=== PATIENT | male | born 1985 | race Two or more races ===

== ENCOUNTER 2023-04-04 18:00 | Emergency (ER) | payer BC, OTHER ==
[~2023-04-04] VITALS: Ht 185.4 cm; Wt 104.5 kg
[2023-04-04 18:33] LABS: Hematocrit 46.6 % (41.0-53.0); Hemoglobin 16.2 g/dL (13.5-17.5); Mean Corpuscular Hemoglobin 31.3 pg (28.0-32.0); Mean Corpuscular Hgb Conc. 34.7 g/dL (32.0-36.0); Mean Corpuscular Volume 90.1 fL (80.0-100.0); Red Blood Cells 5.17 10^6/uL (4.5-5.90); Red Cell Distribution Width 12.7 % (11.8-14.3); White Blood Cell 6.1 10^3/uL (4.4-10.8)
[2023-04-04 18:53] LABS: Alanine Aminotransferase 70 U/L (7-40); Albumin 4.7 g/dL (3.2-4.8); Alkaline Phosphatase 73 U/L (46-116); Anion Gap 8 (5-15); Aspartate Aminotransferase 38 U/L (13-40); BUN/Creatinine Ratio 5.5 (10.0-20.0); Bilirubin, Total 0.6 mg/dL (0.2-1.0); Blood Urea Nitrogen 6 mg/dL (9-23); Calcium 8.9 mg/dL (8.7-10.4); Carbon Dioxide 21 mmol/L (20-30); Chloride 108 mmol/L (98-107); Glucose 94 mg/dL (74-106); Magnesium 2.2 mg/dL (1.6-2.6); Potassium 3.8 mmol/L (3.5-5.1); Sodium 137 mmol/L (136-145); Total Protein 7.9 g/dL (5.7-8.2)
[2023-04-04 19:11] LABS: Basophils % (manual) 0 (0.0-2.0); Blast Cells 0; Promyelocytes % 0; Reactive Lymphocytes 0
[2023-04-04 19:19] LABS: INR 1.03 (0.9-1.15); Partial Thromboplastin Time 34.2 SEC (24.5-34.5); Prothrombin Time 10.8 sec (9.3-11.8)
[2023-04-04 19:40] VITALS: PULSE 86; RESP 14; O2SAT 98
[2023-04-04 19:48] LABS: Band Neutrophils % (manual) 8; Eosinophils % (manual) 2 (0-7); Lymphocytes % (manual) 17 (10.0-50.0); Metamyelocytes % 3; Monocytes % (manual) 25 (0-12); Myelocytes % 3; Platelet Estimate Adequate
[2023-04-04] MEDS ORDERED: ACETAMINOPHEN 325 MG TAB PO ONE (20:45)
[2023-04-04] MEDS ORDERED: IPRATROPIUM BROM 0.5 MG/2.5ML INH SOL ONE (20:59)
[2023-04-04] MEDS ORDERED: ALBUTEROL MEDNEB 2.5 mg/3ml NEB ONE (20:59)
[2023-04-04] MEDS ORDERED: IPRATROPIUM BROM 0.5 MG/2.5ML INH SOL NEB ONE (21:00)
[2023-04-04] MEDS ORDERED: ALBUTEROL MEDNEB 2.5 mg/3ml NEB NEB ONE (21:00)
[2023-04-04] MEDS ORDERED: LACTATED RINGER'S 1,000 ML IV ONE (21:00)
[2023-04-04] MEDS ORDERED: DexAMETHasone SOD PHOS 10MG/1ML VIAL INJ IV ONE (21:00)
[2023-04-04] MEDS ORDERED: NIRM1TAB5 PO (22:28)
[2023-04-04] MEDS ORDERED: ALBU108A5 IN (22:28)
[2023-04-04] MEDS ORDERED: DEX4T PO (22:28)
[2023-04-04 22:38] VITALS: BP 133/71; PULSE 93; RESP 20; TEMP 99.6; O2SAT 95
== END 2023-04-04 22:28 | disposition home or self-care (01) ==
LOC: ER 18:00
DX: U07.1 COVID-19 (principal); R07.89 Other chest pain
CPT/HCPCS: 36415; 71045; 80053; 83605; 83735; 83880; 84484; 85007; 85027; 85610; 85730; 87040; 93005; 94640; 96361; 96374; 99285; J1100; J7644; 87077; 87186

== ENCOUNTER 2023-04-06 11:20 | Inpatient (IN) | payer BC ==
[~2023-04-06] VITALS: Ht 185.4 cm; Wt 109.4 kg
[~2023-04-06 11:20] MED LIST: ALBU108A5 IN; DEX4T PO; NIRM1TAB5 PO
[2023-04-06 11:45] LABS: Basophils # (auto) 0 10 ^3/uL (0-0.2); Basophils % (auto) 0.2 % (0.0-2.0); Eosinophils # (auto) 0 10 ^3/uL (0-0.8); Hemoglobin 16.3 g/dL (13.5-17.5); Lymphocytes # (auto) 0.8 10 ^3/uL (0.4-5.4); Lymphocytes % (auto) 10.3 % (10.0-50.0); Mean Corpuscular Hgb Conc. 34.6 g/dL (32.0-36.0); Mean Corpuscular Volume 89.6 fL (80.0-100.0); Monocytes # (auto) 0.4 10 ^3/uL (0-1.3); Monocytes % (auto) 5.1 % (0.0-12.0); Neutrophils # (auto) 6.9 10 ^3/uL (1.6-8.6); Neutrophils % (auto) 84.4 % (37.0-80.0); Red Blood Cells 5.25 10^6/uL (4.5-5.90); Red Cell Distribution Width 12.7 % (11.8-14.3); White Blood Cell 8.2 10^3/uL (4.4-10.8)
[2023-04-06 12:04] LABS: Alanine Aminotransferase 50 U/L (7-40); Albumin 4.7 g/dL (3.2-4.8); Alkaline Phosphatase 59 U/L (46-116); Anion Gap 10 (5-15); Aspartate Aminotransferase 21 U/L (13-40); BUN/Creatinine Ratio 9.2 (10.0-20.0); Bilirubin, Total 0.7 mg/dL (0.2-1.0); Blood Urea Nitrogen 9 mg/dL (9-23); Calcium 8.8 mg/dL (8.5-10.1); Carbon Dioxide 22 mmol/L (20-30); Chloride 106 mmol/L (98-107); Glucose 182 mg/dL (74-106); Potassium 3.9 mmol/L (3.5-5.1); Sodium 138 mmol/L (136-145); Total Protein 7.9 g/dL (5.7-8.2)
[2023-04-06] MEDS ORDERED: PIPERACILLIN-TAZOB 3.375GM 100 ML IV ONE (13:00)
[2023-04-06] MEDS ORDERED: SODIUM CHLORIDE 0.9% 1,000 ML IV ONE (14:15)
[2023-04-06 14:16] LABS: Lactic Acid w/Reflex 2.4 mmol/L (0.4-2.0)
[2023-04-06] MEDS ORDERED: ACETAMINOPHEN 500 MG TAB PO PRN (16:30)
[2023-04-06] MEDS ORDERED: MORPHINE SULFATE INJ 2 MG/ml SYRG IV PRN ×2 (16:30)
[2023-04-06] MEDS ORDERED: ONDANSETRON HCL 4 MG/2 ML VIAL IV PRN (16:30)
[2023-04-06] MEDS ORDERED: HYDROcodone-ACET 5/325MG TAB PO PRN (16:30)
[2023-04-06] MEDS ORDERED: NITROGLYCERIN 0.4 MG SL TAB SL PRN (16:30)
[2023-04-06] MEDS ORDERED: IPRATROPIUM BROM 0.5 MG/2.5ML INH SOL NEB PRN (16:45)
[2023-04-06] MEDS ORDERED: ALBUTEROL MEDNEB 2.5 mg/3ml NEB NEB PRN (16:45)
[2023-04-06 21:31] VITALS: BP 134/89; PULSE 76; RESP 18; TEMP 97.5; O2SAT 97
[2023-04-06 21:59] LABS: Rapid Influenza A Negative (Negative)
[2023-04-06 22:00] LABS: COVID19 ANTIGEN SOFIA FIA POSITIVE (NEGATIVE); Rapid Influenza B Positive (Negative)
[2023-04-06] MEDS ORDERED: OSELTAMIVIR 75 MG CAP PO ONE (22:15)
[2023-04-06 23:45] VITALS: PULSE 68; RESP 16; O2SAT 99
[2023-04-07] VITALS (8 sets, daily range): BP systolic 106–140; BP diastolic 62–70; PULSE 58–64; RESP 18–58; TEMP 97.6–98.4; O2SAT 96–98
[2023-04-07] MEDS: SODIUM CHLORIDE 0.9% 1,000 ML IV SCH ×2 (00:07→09:47)
[2023-04-07] MEDS: PIPERACILLIN-TAZOB 3.375GM 100 ML IV SCH ×5 (00:10→22:18)
[2023-04-07] MEDS ORDERED: ALBUTEROL SULF HFA 90MCG INH 200DOSE IN PRN (03:15)
[2023-04-07] MEDS: OSELTAMIVIR 75 MG CAP PO SCH (22:18)
[2023-04-08] VITALS (7 sets, daily range): BP systolic 99–134; BP diastolic 61–78; PULSE 56–69; RESP 18–20; TEMP 97.5–98.8; O2SAT 94–98
[2023-04-08] MEDS: PIPERACILLIN-TAZOB 3.375GM 100 ML IV SCH ×4 (04:12→23:41)
[2023-04-08 06:51] LABS: Basophils # (auto) 0 10 ^3/uL (0-0.2); Basophils % (auto) 0.1 % (0.0-2.0); Eosinophils # (auto) 0 10 ^3/uL (0-0.8); Eosinophils % (auto) 0.3 % (0.0-7.0); Hematocrit 44.9 % (41.0-53.0); Hemoglobin 15.3 g/dL (13.5-17.5); Lymphocytes # (auto) 2.3 10 ^3/uL (0.4-5.4); Lymphocytes % (auto) 32.8 % (10.0-50.0); Mean Corpuscular Hgb Conc. 34.1 g/dL (32.0-36.0); Mean Corpuscular Volume 91.2 fL (80.0-100.0); Monocytes # (auto) 0.9 10 ^3/uL (0-1.3); Monocytes % (auto) 12.3 % (0.0-12.0); Neutrophils # (auto) 3.9 10 ^3/uL (1.6-8.6); Neutrophils % (auto) 54.5 % (37.0-80.0); Nucleated Red Blood Cells % 0.1 %; Red Blood Cells 4.92 10^6/uL (4.5-5.90); Red Cell Distribution Width 12.8 % (11.8-14.3); White Blood Cell 7.1 10^3/uL (4.4-10.8)
[2023-04-08 10:06] LABS: Anion Gap 6 (5-15); BUN/Creatinine Ratio 11.4 (10.0-20.0); Blood Urea Nitrogen 10 mg/dL (9-23); Calcium 7.9 mg/dL (8.7-10.4); Carbon Dioxide 23 mmol/L (20-30); Chloride 108 mmol/L (98-107); Glucose 115 mg/dL (74-106); Potassium 3.7 mmol/L (3.5-5.1); Sodium 137 mmol/L (136-145)
[2023-04-08] MEDS: OSELTAMIVIR 75 MG CAP PO SCH ×2 (10:47→23:41)
[2023-04-09 00:11] VITALS: BP 118/73; PULSE 63; RESP 18; TEMP 97.8; O2SAT 98
[2023-04-09] MEDS: PIPERACILLIN-TAZOB 3.375GM 100 ML IV SCH ×3 (05:57→17:31)
[2023-04-09 07:43] VITALS: O2SAT 96
[2023-04-09 08:00] VITALS: BP 112/68; PULSE 50; RESP 20; TEMP 97.6; O2SAT 99
[2023-04-09] MEDS: OSELTAMIVIR 75 MG CAP PO SCH (10:49)
[2023-04-09 12:00] VITALS: BP 114/70; PULSE 62; RESP 20; TEMP 97.8; O2SAT 93
[2023-04-09 17:00] VITALS: TEMP 36.6
== END 2023-04-09 18:03 | disposition home or self-care (01) | DRG 177 ==
LOC: ER 11:20 → OVERFLOW 16:29 → WEST WING 04-07 02:30
PROVIDERS: ADMIT Nurse Practitioner Acute Care; ATTEND Nurse Practitioner Acute Care
DX: U07.1 COVID-19 (principal); J10.08 Influenza due to other identified influenza virus with other specified pneumonia; J12.82 Pneumonia due to coronavirus disease 2019; E87.20 Acidosis, unspecified; R78.81 Bacteremia; E66.9 Obesity, unspecified; Z68.31 Body mass index [BMI] 31.0-31.9, adult
CPT/HCPCS: 36415; 80048; 80053; 83036; 83605; 85025; 85379; 86141; 87040; 87426; 87804; G0378; J2543